=== PATIENT | male | born 1970 | race Caucasian/White ===

== ENCOUNTER → 2017-09-08 | Outpatient (CLI) | payer OTHER ==
[~2017-09-08] MED LIST: GADOBENATE 529MG/1ML 15ML VIAL IVP ONE
--- NOTE | 2017-09-08 15:32 | RADIOLOGY IMAGING REPORT ---
[place] [facility] [place] Luiz Vang : 1970 MR: [id number] V: [id number] EXAM DATE: ORDERING PHYSICIAN: DEBORAH VEGAS TECHNOLOGIST: Location: [facility] Patient: Luiz Vang : 1970 Visit/Account:[id number] Date of Sevice: 09/08/2017 ORBITS FOREIGN BODY 1 VIEW INDICATION: Pre-MRI. COMPARISON: None available FINDINGS: Single frontal view the orbits. No radiopaque foreign body besides dental work. The sinus es and mastoids visualized are clear. No gross bony abnormality. IMPRESSION: No orbital radiopaque foreign body. Report Dictated By: Jam Barlow at 09/08/2017 3:26 PM Report E-Signed By: Jam Barlow at 09/08/2017 3:27 PM WSN:[id number]
--- NOTE | 2017-09-08 16:48 | RADIOLOGY IMAGING REPORT ---
FACILITY: [facility] [place] PATIENT NAME: Luiz Vang : 1970 MR: [id number] V: [id number] EXAM DATE: ORDERING PHYSICIAN: DEBORAH VEGAS TECHNOLOGIST: Location: [facility] Patient: Luiz Vang : 1970 Visit/Account:[id number] Date of Sevice: 09/08/2017 BRAIN W W/O CONTRAST Comparisons: None. Additional pertinent history: Digital disturbances with right-sided facial weakness TECHNIQUE: Multiplanar, multisequence brain MRI was performed with and without gadolinium contrast. CONTRAST: 10 ml of MultiHance. FINDINGS: Sagittal midline structures and craniocervical junction: Negative. Midline shift: None. Ventricles: Negative. Brain parenchyma: Diffusion weighted imaging: Negative. Gradient sequence: Negative. T2 weighted FLAIR images: Negative. Extra-axial spaces: Negative. Dural venous sinuses and major arterial flow voids: Negative. Intracranial enhancement: Negative.. Mastoid air cells and paranasal sinuses: Negative. Surrounding soft tissues and orbits: Negative. Impression: Normal brain MRI with and without contrast. Report Dictated By: Kirk Santizo MD at 09/08/2017 4:40 PM Report E-Signed By: Kirk Santizo MD at 09/08/2017 4:43 PM WSN:[id number]
== END ==
LOC: MRI 15:08
PROVIDERS: ATTEND Nurse Practitioner Family
DX: G31.84 Mild cognitive impairment of uncertain or unknown etiology (principal); H53.9 Unspecified visual disturbance
CPT/HCPCS: 70030; 70553; A9577

== ENCOUNTER 2018-06-05 17:52 | Emergency (ER) | payer OTHER ==
--- NOTE | 2018-06-05 18:02 | ER Report ---
History and Physical Time Seen By MD: 18:02 Hx. of Stated Complaint: "IT FEELS LIKE I AM LOOKING AT EVERYTHING THROUGH GLASS WITH WATER ON IT". HPI/ROS CHIEF COMPLAINT: Visual changes HISTORY OF PRESENT ILLNESS: This is a 47-year-old male presents to the emergency department for facial disturbances. Patient states that over the last year or so he's had intermittent visual disturbances, which appears to be in both eyes, looking through a window with raindrops on it, starts pinpoint and then broadens out, sometimes he'll develop a headache on the right side sometimes he won't. Patient states that he's had an MRI which was negative, has followed up with his primary care provider, they told him to come to the ER immediately should he have any repeat or recurrent disturbances. Upon arrival the patient's symptoms are nearly resolved. He states that when the disturbances happen he gets a fluttering feeling in the stomach and then the disturbances will follow. No history of hypertension, no cardiac disease, patient denies taking any medications. He does however take ibuprofen for the headaches. No fevers or chil ls. No rashes. No meningismus. No loss of bowel or bladder, no focal neuro deficits. REVIEW OF SYSTEMS: Constitutional: No fever, no chills. Eyes: As above. ENT: No sore throat. Cardiovascular: No chest pain, no palpitations. Respiratory: No cough, no shortness of breath. Gastrointestinal: No abdominal pain, no vomiting. Genitourinary: No hematuria. Musculoskeletal: No back pain. Skin: No rashes. Neurological: As above. Allergies: Coded Allergies: No Known Drug Allergies (Unverified , 06/05/18) Home Meds Active Scripts Propranolol Hcl (PROPRANOLOL HCL) 20 Mg Tablet, 20 MG PO BID for 30 Days, #60 TAB 0 Refills Prov:CHRISTIAN MAZARIEGOS [employer]IPPING ROOM SUPERVISOR-BC 06/05/18 Past Medical/Surgical History The patient has a past medical and surgical history of headaches. Reviewed Nurses Notes: Yes Constitutional Vital Sign - Last 24 Hours 06/05/18 06/05/18 06/05/18 06/05/18 17:54 17:56 18:00 18:07 Temp 97.2 Pulse 78 71 Resp 18 B/P (MAP) 146/91 (109) 146/91 135/86 (102) Pulse Ox 96 92 O2 Delivery Room Air 06/05/18 06/05/18 06/05/18 06/05/18 18:22 18:30 18:37 18:52 Pulse 66 60 65 B/P (MAP) 131/88 (102) Pulse Ox 95 93 94 06/05/18 06/05/18 06/05/18 18:57 19:12 19:27 Pulse 61 62 62 Pulse Ox 93 92 94 Physical Exam General Appearance: The patient is alert, has no immediate need for airway protection and no signs of toxicity. Eyes: Pupils equal and round no pallor or injection. No nystagmus. EOMs intact. Normal fundus exam. Visual acuity 20/20 OS, OD, both eyes. ENT, Mouth: Mucous membranes are moist. Respiratory: There are no retractions, lungs are clear to auscultation. Cardiovascular: Regular rate and rhythm, no murmurs, clicks or rubs. Gastrointestinal: Abdomen is soft and non tender, no masses, bowel sounds normal. Neurological: Alert and oriented 4. Moving all extremities. Following all com mands. No focal neuro deficits. Skin: Warm and dry, no rashes. Musculoskeletal: Neck is supple non tender. Extremities are nontender, nonswollen and have full range of motion. DIFFERENTIAL DIAGNOSIS: After history and physical exam differential diagnosis was considered for headache including but not limited to subarachnoid hemorrhage, migraine headache, tension headache and infectious causes such as meningitis, pharyngitis and sinusitis. Medical Decision Making Data Points Result Diagram: 06/05/183 06/05/18 1823 Laboratory Hematology Test 06/05/18 18:23 Red Blood Count 5.35 M/uL (4.00-5.60) Mean Corpuscular Volume 85.3 fL (80.0-96.0) Mean Corpuscular Hemoglobin 29.4 pg (26.0-33.0) Mean Corpuscular Hemoglobin Concent 34.5 g/dL (32.0-36.0) Red Cell Distribution Width 13.2 % (11.5-14.5) Mean Platelet Volume 7.6 fL (7.2-11.1) Neutrophils (%) (Auto) 64.1 % (39.4-72.5) Lymphocytes (%) (Auto) 25.6 % (17.6-49.6) Monocytes (%) (Auto) 8.0 % (4.1-12.4) Eosinophils (%) (Auto) 1.7 % (0.4-6.7) Basophils (%) (Auto) 0.6 % (0.3-1.4) Nucleated RBC Relative Count (auto) 0.0 /100WBC Neutrophils # (Auto) 5.9 K/uL (2.0-7.4) Lymphocytes # (Auto) 2.4 K/uL (1.3-3.6) Monocytes # (Auto) 0.7 K/uL (0.3-1.0) Eosinophils # (Auto) 0.2 K/uL (0.0-0.5) Basophils # (Auto) 0.1 K/uL (0.0-0.1) Nucleated RBC Absolute Count (auto) 0.00 K/uL Erythrocyte Sedimentation Rate < 1 mm/HOUR (0-15) Sodium Level 140 mmol/L (137-145) Potassium Level 3.6 mmol/L (3.5-5.0) Chloride Level 104 mmol/L (98-107) Carbon Dioxide Level 26 mmol/L (22-30) Blood Urea Nitrogen 18 mg/dl (9-21) Creatinine 0.90 mg/dl (0.66-1.25) Glomerular Filtration Rate Calc > 60.0 Random Glucose 108 mg/dl (75-110) Calcium Level 8.6 mg/dl (8.4-10.2) Total Bilirubin 0.3 mg/dl (0.2-1.3) Aspartate Amino Transf (AST/SGOT) 23 U/L (0-35) Alanine Aminotransferase (ALT/SGPT) 32 U/L (0-56) Alkaline Phosphatase 179 U/L (0-126) Total Protein 6.7 g/dl (6.3-8.2) Albumin 4.0 g/dl (3.5-5.0) Chemistry Test 06/05/18 18:23 White Blood Count 9.3 k/uL (4.5-11.0) Red Blood Count 5.35 M/uL (4.00-5.60) Hemoglobin 15.7 g/dL (14.0-18.0) Hematocrit 45.6 % (42.0-52.0) Mean Corpuscular Volume 85.3 fL (80.0-96.0) Mean Corpuscular Hemoglobin 29.4 pg (26.0-33.0) Mean Corpuscular Hemoglobin Concent 34.5 g/dL (32.0-36.0) Red Cell Distribution Width 13.2 % (11.5-14.5) Platelet Count 349 K/uL (150-450) Mean Platelet Volume 7.6 fL (7.2-11.1) Neutrophils (%) (Auto) 64.1 % (39.4-72.5) Lymphocytes (%) (Auto) 25.6 % (17.6-49.6) Monocytes (%) (Auto) 8.0 % (4.1-12.4) Eosinophils (%) (Auto) 1.7 % (0.4-6.7) Basophils (%) (Auto) 0.6 % (0.3-1.4) Nucleated RBC Relative Count (auto) 0.0 /100WBC Neutrophils # (Auto) 5.9 K/uL (2.0-7.4) Lymphocytes # (Auto) 2.4 K/uL (1.3-3.6) Monocytes # (Auto) 0.7 K/uL (0.3-1.0) Eosinophils # (Auto) 0.2 K/uL (0.0-0.5) Basophils # (Auto) 0.1 K/uL (0.0-0.1) Nucleated RBC Absolute Count (auto) 0.00 K/uL Erythrocyte Sedimentation Rate < 1 mm/HOUR (0-15) Glomerular Filtration Rate Calc > 60.0 Calcium Level 8.6 mg/dl (8.4-10.2) Total Bilirubin 0.3 mg/dl (0.2-1.3) Aspartate Amino Transf (AST/SGOT) 23 U/L (0-35) Alanine Aminotransferase (ALT/SGPT) 32 U/L (0-56) Alkaline Phosphatase 179 U/L (0-126) Total Protein 6.7 g/dl (6.3-8.2) Albumin 4.0 g/dl (3.5-5.0) ED Course/Re-evaluation ED Course The patient was admitted to room. A history and physical were obtained. Differential diagnoses were considered. After reviewing symptoms with patient, her last couple years he's had intermittent headaches, did have some resolution last year, the sheer however it seems as though the headaches of returned with the visual changes, I did recommend just basic blood work, CBC, CMP were all normal, EKG normal sinus rhythm. I did consult with Dr. Astorga the neurologist on-call as noted below, I did review this with the patient, we can try suppression treatment for his headaches, low-dose propanolol 20 mg twice a day, I did recommend trying this, he will follow-up with his primary care provider for reevaluation. I also recommended following up with [facility] for reevaluation and long-term treatment of his headaches. He expressed understanding, he will follow up with neurology and his primary provider, return to the ER for any concerns or worsening symptoms. Patient was agreeable with this plan of care and discharged home. 06/05/2018 7:23:25 pm I did speak with Dr. Michael, the neurologist representative government relations at [facility], we discussed the patient's case, he did not feel that repeat imaging would be necessary at this time, he did suggest abortive treatment such as propanolol 20 mg twice a day as needed for the headaches. Also following up with neurology would be appropriate. I reviewed the information with the patient, he is agreeable. Decision to Disposition Date: Jun 05, 2018 Decision to Disposition Time: 19:23 Depart Departure Latest Vital Signs Vital Signs Date Time Temp Pulse Resp B/P (MAP) Pulse Ox O2 Delivery O2 Flow Rate FiO2 06/05/18 19:27 62 94 06/05/18 18:30 131/88 (102) 06/05/18 17:56 97.2 18 Room Air Impression: Primary Impression: Ocular migraine Condition: Improved Disposition: HOME OR SELF-CARE Referrals: NEPHROLOGISTS New Scripts Propranolol Hcl (PROPRANOLOL HCL) 20 Mg Tablet 20 MG PO BID for 30 Days, #60 TAB 0 Refills Prov: CHRISTIAN MAZARIEGOS [employer] SUPERVISOR-BC 06/05/18 Patient Instructions: Ocular Migraine (ED) Additional Instructions: Please contact [facility] for a follow-up appointment, within the next 1-2 weeks. Drink plenty of water. Get plenty of rest. Take the propralol twice a day for abortive headaches, try this for the next 30 days to see if this help with the frequency of headaches and visual disturbances. Be careful when starting new medications as this may cause a drop in your blood pressure, change positions slowly. Follow up with your Primary care provider within one week for reevaluation. Return to the ED for any other concern or worsening symptoms. CHRISTIAN MAZARIEGOS SHIPPING ROOM SUPERVISOR-BC Jun 05, 2018 18:02
--- NOTE | 2018-06-05 18:22 | EKG ---
FACILITY: [facility] - [place] PATIENT NAME: KAL ARIZA : [id number] MR: [id number] V: [id number] EXAM DATE: ORDERING PHYSICIAN: CHRISTIAN MAZARIEGOS TECHNOLOGIST: TERRENCE Mensah Reason : NEURO Blood Pressure : / mmHG Vent. Rate : 060 BPM Atrial Rate : 060 BPM P-R Int : 140 ms QRS Dur : 090 ms QT Int : 416 ms P-R-T Axes : 039 039 014 degrees QTc Int : 416 ms Normal sinus rhythm Normal ECG No previous ECGs available Confirmed by KAL JOEL ([id number]) on 06/05/2018 10:15:58 PM Referred By: ASHLEE Confirmed By:KAL JOEL
[2018-06-05 18:30] VITALS: BP 131/88
[2018-06-05 18:31] LABS: PLATELET COUNT, AUTOMATED 349 K/uL (150-450)
[2018-06-05] MEDS ORDERED: PROP20TA56 PO (19:26)
== END 2018-06-05 19:36 | disposition home or self-care (01) ==
LOC: ER 18:07
DX: G43.809 Other migraine, not intractable, without status migrainosus (principal)
CPT/HCPCS: 82040; 82247; 82310; 82374; 82435; 82565; 82947; 84075; 84132; 84155; 84295; 84450; 84460; 84520; 85025; 85651; 93005; 99283